=== PATIENT | male | born 1995 | race Caucasian/White ===

== ENCOUNTER 2018-12-27 00:38 | Emergency (ER) | payer SELFPAY ==
[2018-12-27 01:15] VITALS: BP 124/75
== END 2018-12-27 01:27 | disposition left against medical advice (07) ==
LOC: ED 00:38
DX: S61.213A Laceration without foreign body of left middle finger without damage to nail, initial encounter (principal); Z53.21 Procedure and treatment not carried out due to patient leaving prior to being seen by health care provider; X58.XXXA Exposure to other specified factors, initial encounter; Y93.89 Activity, other specified; Y92.89 Other specified places as the place of occurrence of the external cause; Y99.8 Other external cause status